=== PATIENT | female | born 1980 | race Caucasian/White ===

== ENCOUNTER 2021-09-26 17:05 | Emergency (ER) | payer SELFPAY ==
[2021-09-26] MEDS ORDERED: ACETAMINOPHEN 325 MG TABLET (FP) PO ONE (18:11)
[2021-09-26 18:19] VITALS: TEMP 98.6; BMI 30.2
[2021-09-26] MEDS ORDERED: ACETAMINOPHEN 325 MG TABLET (FP) ONE (18:19)
[2021-09-26 21:03] LABS: ARTERIAL BLD GAS O2 SATURATION 98.6 % (95-98); ARTERIAL BLOOD GAS BASE EXCESS 0.6 mmol/L (-2-2); ARTERIAL BLOOD GAS PO2 126.9 mmHg (80-100); ARTERIAL BLOOD GAS pH 7.413 (7.350-7.450)
[2021-09-26 21:27] VITALS: BP 110/72; PULSE 86
== END 2021-09-26 21:27 | disposition home or self-care (01) ==
LOC: JER 17:05
DX: J70.5 Respiratory conditions due to smoke inhalation (principal)
CPT/HCPCS: 36600; 71046-TC-FY; 82375; 82803; 93005; 93010; 99284-25